=== PATIENT | female | born 1955 | race Two or more races ===

== ENCOUNTER 2019-01-12 15:58 | Emergency (ER) | payer MEDICARE, MEDICAID ==
[2019-01-12 17:35] LABS: % BASOPHILS 0.2 % (0.0-2.0); % EOSINOPHILS 2.1 % (0.0-5.0); % LYMPHOCYTES 32.4 % (20.0-50.0); % MONOCYTES 6.5 % (2.0-10.0); % NEUTROPHILS 58.8 % (40.0-80.0); EOSINOPHILE ABSOLUTE 0.2 Th/cmm (0.1-0.4); HEMATOCRIT 43.3 % (41.0-60); HEMOGLOBIN 14.4 gm/dL (12-16); MEAN CELL VOLUME 89.9 fl (81-100); MEAN CORPUSCULAR HEMOGLOBIN 29.8 pg (27.0-31.0); MEAN CORPUSCULAR HGB CONC 33.2 pg (28.0-36.0); MONOCYTE ABSOLUTE 0.6 Th/cmm (0.3-1.0); NEUTROPHILE ABSOLUTE 5.6 Th/cmm (1.8-8.0); PLATELET COUNT 245 Th/cmm (150-400); RED BLOOD COUNT 4.82 Mil/cmm (3.80-5.10); RED CELL DISTRIBUTION WIDTH 13.1 % (11.5-20.0); WHITE BLOOD COUNT 9.4 Th/cmm (4.8-10.8)
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
[2019-01-12 17:56] LABS: URINE SOURCE CLEAN C
[2019-01-12 18:00] LABS: URINE BILIRUBIN NEGATIVE (NEGATIVE); URINE BLOOD NEGATIVE (NEGATIVE); URINE GLUCOSE (UA) NEGATIVE (NEGATIVE); URINE KETONE TRACE mg/dL (NEGATIVE); URINE LEUKOCYTE ESTERASE LARGE (NEGATIVE); URINE MICROSCOPIC INDICATED? YES; URINE NITRATE NEGATIVE (NEGATIVE); URINE PH 7.5 (4.6 - 8.0); URINE PROTEIN TRACE mg/dL (NEGATIVE)
[2019-01-12 18:08] LABS: URINE CLARITY HAZY (CLEAR); URINE COLOR YELLOW
[2019-01-12 18:23] LABS: URINE BACTERIA 2+ /hpf (NONE SEEN); URINE EPITHELIAL CELLS MODERATE /lpf (FEW); URINE RBC 0-2 /hpf (0-5)
[2019-01-12 18:24] LABS: URINE TRICHOMONAS MODERATE /lpf (NONE SEEN)
[2019-01-12 18:44] LABS: ALBUMIN 3.7 gm/dL (3.7-5.3); ALKALINE PHOSPHATASE 84 U/L (34-104); ANION GAP 15.1 (7.0-16.0); BILIRUBIN,TOTAL 0.5 mg/dL (0.3-1.0); BUN - UREA NITROGEN 11 mg/dL (7-25); CALCIUM SERUM 9.6 mg/dL (8.6-10.3); CARBON DIOXIDE 24.4 mEq/L (21.0-31.0); CHLORIDE 104 mEq/L (98-107); CREATININE - SERUM 0.6 mg/dL (0.6-1.2); GFR AFRICAN-AMERICAN > 60.0 ml/min (>90); GFR NON AFRICAN-AMERICAN > 60.0 ml/min; GLUCOSE 156 mg/dL (70-105); POTASSIUM SERUM 3.5 mEq/L (3.5-5.1); SGOT 22 U/L (13-39); SGPT/ALT 23 U/L (7-52); SODIUM SERUM 140 mEq/L (136-145); TOTAL PROTEIN,SERUM 7.5 gm/dL (6.0-8.3)
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
--- NOTE | 2019-01-13 09:59 | Diagnostic Imaging Report ---
Right ankle 3 views Indication: Trauma Comparison: none Findings: No evidence of an acute fracture or dislocation. No focal soft tissue swelling. Mild degenerative changes are noted. Small distal Achilles and plantar calcaneal spurs are noted. After screws noted. Phleboliths are noted. Impression: No evidence of an acute fracture. In the setting of trauma, if clinical symptoms persist and there is continued concern for an occult fracture, follow up exams in 5-7 days is suggested.
--- NOTE | 2019-01-13 10:01 | Diagnostic Imaging Report ---
Right hand 3 views Indication: Trauma Comparison: none Findings: Degenerative changes are seen greatest at the fifth DIP joint with advanced joint space narrowing in this region. No evidence of an acute fracture or significant focal soft tissue swelling. No dislocation. There may be osteopenia. Impression: No evidence of an acute fracture. Degenerative changes. In the setting of trauma, if clinical symptoms persist and there is continued concern for an occult fracture, follow up exams in 5-7 days is suggested.
--- NOTE | 2019-01-13 10:16 | Diagnostic Imaging Report ---
CT lumbar spine without IV contrast HISTORY: Trauma COMPARISON: None Technique: Axial images were obtained from the lower thoracic spine to the upper sacrum without IV contrast. Reconstructions were made. total DLP: [id number], [id number] Findings: There are bilateral chronic appearing pars interarticularis defects at L5/S1 with degenerative change and ossicle seen in these regions. Advanced degenerative changes also seen at L5/S1 disc space with advanced disc space loss of height and vacuum phenomena. There is bilateral severe neural foraminal narrowing at this level. Otherwise no evidence of an acute fracture. Degenerative changes of SI joints are noted. 3 mm bone island is incidentally noted seen at L5. Additional 6 mm chronic density seen within the right sacrum likely also bone island. Minimal atherosclerosis is noted. IMPRESSION: Bilateral chronic appearing pars interarticularis defects at L5/S1 with associated severe degenerative change at this level. There is 6 mm anterolisthesis at this level causing bilateral severe neural foraminal narrowing. Otherwise no acute fractures identified. Please correlate clinically. Small sclerotic densities of the sacrum and L5 vertebral bodies likely incidental bone islands. Consider follow-up if indicated.
== END 2019-01-12 20:04 | disposition home or self-care (01) ==
LOC: ER 15:58
DX: S30.0XXA Contusion of lower back and pelvis, initial encounter (principal); S70.01XA Contusion of right hip, initial encounter; S40.012A Contusion of left shoulder, initial encounter; S60.222A Contusion of left hand, initial encounter; S90.01XA Contusion of right ankle, initial encounter; N39.0 Urinary tract infection, site not specified; I10 Essential (primary) hypertension; E11.9 Type 2 diabetes mellitus without complications; X58.XXXA Exposure to other specified factors, initial encounter; Y93.89 Activity, other specified; Y92.89 Other specified places as the place of occurrence of the external cause; Y99.8 Other external cause status
CPT/HCPCS: 99284; 96372; 73610; 73030; 73130; 72131; 84484; 36415; 85025; 87086; 81001; 80053; J0696